=== PATIENT | female | born 1930 | race Caucasian/White ===

== ENCOUNTER 2017-02-06 15:37 | Inpatient (IN) ==
[2017-02-06 16:43] LABS: Basophils % 0.3 %; Eosinophils # 0.1 K/mcL (0.0-0.6); Eosinophils % 1.4 %; Hematocrit 38.1 % (35.3-44.9); Hemoglobin 12.6 g/dL (11.5-15.4); Immature Granulocytes % 2.7 % (0-4); Lymphocytes # 0.6 K/mcL (0.6-4.6); Lymphocytes % 7.5 %; Mean Corpuscular HGB Conc 33.1 g/dL (31.6-35.5); Mean Corpuscular Hemoglobin 31.8 pg (28.0-33.3); Mean Corpuscular Volume 96.2 fL (83.0-100.0); Mean Platelet Volume 10.5 fL (9.4-12.4); Monocytes # 0.3 K/mcL (0.0-1.3); Monocytes % 4.2 %; Neutrophils # 6.5 K/mcL (1.6-8.9); Platelet Count 202 K/mcL (140-400); Red Blood Count 3.96 M/mcL (3.82-4.97); Red Cell Distribution Width 14.2 % (11.5-14.5); Segmented Neutrophils % 83.9 %
--- NOTE | 2017-02-06 16:44 | Emergency Department Note ---
Disposition Clinical Impression: Elevated troponin I level, JU (acute kidney injury), Epigastric abdominal pain Chest pain Qualifiers: Chest pain type: unspecified Qualified Code(s): R07.9 - Chest pain, unspecified CAD (coronary artery disease) Qualifiers: Coronary Disease-Associated Artery/Lesion type: [place] artery [place] vs. transplanted heart: [place] heart Associated angina: angina presence unspecified Qualified Code(s): I25.10 - Atherosclerotic heart disease of [place] coronary artery without angina pectoris Disposition: Admitted As Inpatient Condition: Fair Time of Disposition: 19:21 Chest Pain HPI - General Chief Complaint: ED Chest Pain Stated Complaint: Chest Pain Time Seen by Provider: 02/06/17 15:49 Source: patient Limitations: no limitations Vital Signs Reviewed: Yes Nursing Notes Reviewed: Yes - History of Present Illness HPI Narrative: Patient is an 86-year-old female presents to [facility] ED with a chief complaint of epigastric abdominal pain. States her symptoms started prior to arrival when she was at her primary care physician's office. States she was not doing anything particular at the time when the pain started. Denies any nausea, vomiting, fever or chills. States she has had several episodes similar to this over the last week and they always go away on their own. Denies any shortness of breath. Past medical history significant for MT with history of stenting, Pt complaint: chest pain Onset (ago): Just [place] Duration: now resolved Onset: during rest Severity: severe Severity scale (1-10): 10 Quality: aching Pain Radiation: none Improves with: nothing Worsens with: nothing Associated symptoms: Reports: nausea. Denies: vomiting, dyspnea, fever, cough Treatments prior to arrival chest pain: none - Related Data Home Medications Medication Instructions Recorded Confirmed Allopurinol [Zyloprim 100 MG] 100 mg PO DAILY 12/26/16 02/06/17 Carvedilol [Coreg] 6.25 mg PO BIDWM 12/26/16 02/06/17 Cholecalciferol (Vitamin D3) 2,000 unit PO DAILY 12/26/16 02/06/17 [Vitamin D] CloNIDine Patch [Catapres-TTS] 0.1 mg TD QWEEK 12/26/16 02/06/17 Cyanocobalamin (Vitamin B-12) 1,000 mcg PO DAILY 12/26/16 02/06/17 [Vitamin B12] Docusate Sodium [Stool Softener] 250 mg PO DAILY 12/26/16 02/06/17 Ferrous Sulfate [Iron] 325 mg PO BID 12/26/16 02/06/17 Furosemide [Lasix] 20 mg PO DAILY 12/26/16 02/06/17 Gabapentin [Neurontin] 100 mg PO TID 12/26/16 02/06/17 Nitroglycerin [Nitrostat] 0.4 mg SL Q5M PRN 12/26/16 02/06/17 Omeprazole [PriLOSEC] 20 mg PO BID 12/26/16 02/06/17 Polyethylene Glycol 3350 [MiraLAX 17 gm PO DAILY 12/26/16 02/06/17 Powder Bulk 17.9 Oz] Potassium Chloride [Klor-Con 10] 10 meq PO DAILY 12/26/16 02/06/17 Ropinirole HCl [Requip] 0.5 mg PO TID 12/26/16 02/07/17 Valsartan [Diovan] 160 mg PO BID 12/26/16 02/06/17 amLODIPine [Norvasc] 5 mg PO BID 12/26/16 02/06/17 Clopidogrel [Plavix] 75 mg PO DAILY 02/06/17 02/06/17 Fluticasone Propionate Nasal 100 mcg NS DAILY PRN 02/06/17 02/06/17 [Flonase] HYDROcodone/Acet 10/325 mg [[place] 1 tab PO Q6HR PRN 02/06/17 02/06/17 10-325 mg] Ropinirole HCl [Requip] 4 mg PO HS 02/06/17 02/06/17 Allergies Allergy/AdvReac Type Severity Reaction Status Date / Time Sulfa (Sulfonamide Allergy See Verified 12/26/16 10:46 Antibiotics) Comments All systems ED: reviewed and negative except as stated. Chest Pain PMH - Past Medical History Medical history: Reports: arthritis, CHF, GERD, hyperlipidemia, hypertension, myocardial infarction, renal disease Psychiatric history: Reports: no psych history HAND II CUTTER history: Reports: no HAND II CUTTER history - Social History Smoking Status: Never smoker Alcohol use: Reports: none Drug use: Reports: none Physical Exam - General Limitations: no limitations General appearance: alert - Head Head exam: atraumatic, normocephalic, normal inspection - Eye Eye exam: Present: normal appearance, PERRL, EOMI - ENT ENT exam: normal exam, normal oropharynx, mucous membranes moist - Neck Neck exam: Present: normal inspection, full ROM, trachea midline - Chest Chest inspection: Present: normal inspection, symmetric chest wall rise - Respiratory Respiratory exam: Present: normal lung sounds bilaterally - Cardiovascular Cardiovascular exam: Present: regular rate, normal rhythm, normal heart sounds - Abdominal Exam Abdominal exam: Present: soft, Non-Tender. Absent: tenderness, distention, guarding, rebound, rigidity - Extremities Exam Extremities exam: Present: normal inspection, full ROM. Absent: tenderness, pedal edema - Back Exam Back exam: Present: normal inspection, full ROM. Absent: tenderness - Neurological Exam Neurological exam: Present: alert - Psychiatric Psychiatric exam: Present: normal affect, normal mood - Skin Skin exam: Present: warm, dry, intact, normal color Course Course Narrative: Patient seen and examined. Epigastric abdominal pain. History of recent heart catheterization with one stent placed. Patient is currently not having any pain. We will go ahead and do a cardiopulmonary workup. - Reevaluation(s) Reevaluation #1: Lab work shows troponin 0.05. Also has mild JU with an elevated creatinine 1.57 (0.89 previously). Small fluid bolus was ordered. 325 mg aspirin also ordered. I spoke with hospitalist Ruby Hidalgo who has accepted patient for admission. Time: 19:17 Vital Signs Temperature 97.8 F 02/06/17 15:43 Pulse Rate 63 02/06/17 15:43 Respiratory Rate 16 02/06/17 15:43 Blood Pressure 126/55 02/06/17 15:43 O2 Sat by Pulse Oximetry 97 02/06/17 15:43 Temperature 98.0 F 02/07/17 11:32 Pulse Rate 60 02/07/17 11:32 Respiratory Rate 16 02/07/17 11:32 Blood Pressure 96/61 02/07/17 11:32 O2 Sat by Pulse Oximetry 95 02/07/17 11:32 Oxygen Delivery Oxygen Delivery Room Air Chest Pain - Medical Records Medical records reviewed: Yes I reviewed the patient's medical records. - Lab Data Lab results reviewed: Yes I reviewed the patient's lab results. Result diagrams: 02/07/17 05:11 02/07/17 05:11 Lab Results 02/06/17 02/06/17 02/06/17 Range/Units 16:00 16:00 16:00 WBC 7.8 (4.3-11.1) K/mcL RBC 3.96 (3.82-4.97) M/mcL Hgb 12.6 (11.5-15.4) g/dL Hct 38.1 (35.3-44.9) % MCV 96.2 (83.0-100.0) fL MCH 31.8 (28.0-33.3) pg MCHC 33.1 (31.6-35.5) g/dL RDW 14.2 (11.5-14.5) % Plt Count 202 (140-400) K/mcL MPV 10.5 (9.4-12.4) fL Immature Gran % 2.7 (0-4) % Seg Neutrophils % 83.9 % Lymphocytes % 7.5 % Monocytes % 4.2 % Eosinophils % 1.4 % Basophils % 0.3 % Neutrophils # 6.5 (1.6-8.9) K/mcL Lymphocytes # 0.6 (0.6-4.6) K/mcL Monocytes # 0.3 (0.0-1.3) K/mcL Eosinophils # 0.1 (0.0-0.6) K/mcL Basophils # 0.0 (0.0-0.2) K/mcL PT 15.2 H (9.4-12.1) Seconds INR 1.4 APTT 26.5 (26.0-36.0) Seconds Sodium (136-145) mEq/L Potassium (3.5-4.5) mEq/L Chloride (98-109) mEq/L Carbon Dioxide (19-29) mEq/L BUN (7-20) mg/dL Creatinine (0.57-1.11) mg/dL Est GFR ( Amer) (> 60) Est GFR (Non-Af Amer) (> 60) BUN/Creatinine Ratio (6-26) Glucose (70-99) mg/dL Calculated Osmolality (280-300) Calcium (8.6-10.8) mg/dL Total Bilirubin (0.2-1.2) mg/dL Direct Bilirubin (0.0-0.5) mg/dL Indirect Bilirubin (0.0-1.2) mg/dL AST (5-34) Units/L ALT (0-55) Units/L Alkaline Phosphatase (38-126) Units/L Troponin I (0-0.03) ng/mL B-Natriuretic Peptide 120 H (0-100) pg/mL Serum Total Protein (6.0-8.3) g/dL Albumin (3.5-5.0) g/dL Globulin (2.4-3.5) g/dL Albumin/Globulin Ratio (1.1-2.2) Lipase (8-78) Units/L 02/06/17 02/06/17 Range/Units 16:00 16:00 WBC (4.3-11.1) K/mcL RBC (3.82-4.97) M/mcL Hgb (11.5-15.4) g/dL Hct (35.3-44.9) % MCV (83.0-100.0) fL MCH (28.0-33.3) pg MCHC (31.6-35.5) g/dL RDW (11.5-14.5) % Plt Count (140-400) K/mcL MPV (9.4-12.4) fL Immature Gran % (0-4) % Seg Neutrophils % % Lymphocytes % % Monocytes % % Eosinophils % % Basophils % % Neutrophils # (1.6-8.9) K/mcL Lymphocytes # (0.6-4.6) K/mcL Monocytes # (0.0-1.3) K/mcL Eosinophils # (0.0-0.6) K/mcL Basophils # (0.0-0.2) K/mcL PT (9.4-12.1) Seconds INR APTT (26.0-36.0) Seconds Sodium 134 L (136-145) mEq/L Potassium 4.0 (3.5-4.5) mEq/L Chloride 97 L (98-109) mEq/L Carbon Dioxide 28 (19-29) mEq/L BUN 28 H (7-20) mg/dL Creatinine 1.57 H (0.57-1.11) mg/dL Est GFR ( Amer) 38 L (> 60) Est GFR (Non-Af Amer) 31 L (> 60) BUN/Creatinine Ratio 18 (6-26) Glucose 119 H (70-99) mg/dL Calculated Osmolality 285 (280-300) Calcium 9.1 (8.6-10.8) mg/dL Total Bilirubin 1.6 H (0.2-1.2) mg/dL Direct Bilirubin 0.5 (0.0-0.5) mg/dL Indirect Bilirubin 1.1 (0.0-1.2) mg/dL AST 17 (5-34) Units/L ALT 14 (0-55) Units/L Alkaline Phosphatase 84 (38-126) Units/L Troponin I 0.05 H* (0-0.03) ng/mL B-Natriuretic Peptide (0-100) pg/mL Serum Total Protein 6.1 (6.0-8.3) g/dL Albumin 3.2 L (3.5-5.0) g/dL Globulin 2.9 (2.4-3.5) g/dL Albumin/Globulin Ratio 1.1 (1.1-2.2) Lipase 78 (8-78) Units/L - Radiology Data Radiology results reviewed: Yes I reviewed the patient's radiology results. Chest X-Ray 02/06/17 16:29 IMPRESSION: Stable chest x-ray. No acute disease. D/ / Roel Lema MD / Roel Lema MD Interpreting Provider: Roel Lema MD - EKG Data EKG attestation: Yes I reviewed and interpreted this EKG. EKG results narrative: EKG done at 1543 shows electronic ventricular paced rhythm with a beat of 64 bpm. Patient does have some inverted T waves in lead V4 through V6 that appears new from EKG done 12/26/2016. Heart Score - Score History: Moderately Suspicious EKG: Non Specific repolarisation Disturbance Age: Greater than 65 Risk Factors: Equal/Greater than 3 risk factor or history of atherosclerotic disease Troponin: 1-3x normal limit HEART Score Total: 7 Attestation Statement - Attestation Attestation: I personally interviewed and examined this patient and my medical decision- making was reviewed with the Resident Physician, Dr. Brooks. I agree with the documented findings, disposition and treatment plan as described except to the extent set forth below. Pt is an 86 yo wf, hx CAD with prior stent placement who presents to the ER with c/o CP/epigastric abd pain. Pt c/o "just not feeling well". Pt had been at her doctors office and began to c/o of above issues, they sent her to the ER for evaluation. Pt's daughter at bedside, and reports that she feels she isn't receiving good care at the [facility], and hasn't been "eating or drinking much for days". I agree with pt's PE as documented. Pt with paced rhythm on EKG. Pt received ASA. Pt with acute on chronic RI, and elev trop. Pt currently c/o only mild epigastric pain. CXR clear. Administered IVF, and will admit for elev trop with CP. Pt currently CP free at this time. VSS.
[2017-02-06 16:54] LABS: Albumin 3.2 g/dL (3.5-5.0); Albumin/Globulin Ratio 1.1 (1.1-2.2); Bilirubin,Direct 0.5 mg/dL (0.0-0.5); Bilirubin,Indirect 1.1 mg/dL (0.0-1.2); Bilirubin,Total 1.6 mg/dL (0.2-1.2); Calcium 9.1 mg/dL (8.6-10.8); Globulin 2.9 g/dL (2.4-3.5); Total Protein 6.1 g/dL (6.0-8.3)
[2017-02-06] MEDS ORDERED: Aspirin Enteric Coated 325 MG Tablet PO SCH (17:00)
[2017-02-06] MEDS ORDERED: 0.9 % Sodium Chloride 500 ML IVC ONE (17:17)
[2017-02-06] MEDS ORDERED: Aspirin 81 MG TAB.CHEW PO ONE (17:21)
[2017-02-06 17:49] LABS: INR 1.4; Prothrombin Time 15.2 Seconds (9.4-12.1)
[2017-02-06 17:51] LABS: Activated Partial Thrombo Time 26.5 Seconds (26.0-36.0)
[2017-02-06] MEDS ORDERED: Ondansetron 4 MG/2 ML VIAL IVP PRN (20:05)
[2017-02-06] MEDS ORDERED: Acetaminophen 325 MG TABLET PO PRN (20:05)
[2017-02-06] MEDS ORDERED: *HR* Morphine 2 MG/ML SYRINGE IVP PRN (20:05)
[2017-02-06] MEDS ORDERED: Naloxone 0.4 MG/ML INJ IVP PRN (20:05)
[2017-02-06] MEDS ORDERED: Nitroglycerin 0.4 MG TAB.SUBL SL PRN (20:25)
[2017-02-06] MEDS ORDERED: 0.9 % Sodium Chloride 1,000 ML IVC SCH ×2 (20:30→21:48)
--- NOTE | 2017-02-06 20:33 | Internal Med History&Physical ---
<Anthony Zamora - Last Filed: 02/06/17 20:59> Date of Encounter: 02/06/17 Time of Encounter: 19:30 Assessment and Plan (1) JU (acute kidney injury) Current visit: Yes Status: Acute - SCr 1.57, which is elevated compared to 0.92 on 12/26/16. - Likely secondary to dehydration. - Will hold home dose Lasix and Losartan at this time. - Given patient's CHF history, will rehydrate with IV NS at slower rate. - Continue to monitor renal function and electrolytes. (2) GERD (gastroesophageal reflux disease) Current visit: Yes Status: Acute - Burning epigastric abdominal pain. - Feel more likely secondary to GERD and less likely ACS. - Increase omeprazole to 40 mg PO BID. - Continue to monitor. Qualifiers: Esophagitis presence: esophagitis presence not specified Qualified Code(s) : K21.9 - Gastro-esophageal reflux disease without esophagitis (3) Elevated troponin I level Current visit: Yes Status: Acute - Mildly elevated troponin at 0.05 in ED. - Feel more likely secondary to JU rather than cardiac cause given EKG showed no significant ischemic change compared to prior EKG in December 2016. - Continue telemetry monitoring. - Recheck troponin in AM. (4) CAD (coronary artery disease) Current visit: Yes Status: Chronic - Known CAD s/p recent heart cath and stent placement at [facility]. - Will obtain medical record from [facility] to what kind of stent was placed and what other cardiac work-up had been done. - Continue aspirin, Plavix, beta-mary jo. Qualifiers: Coronary Disease-Associated Artery/Lesion type: [place] artery [place] vs. transplanted heart: [place] heart Associated angina: angina presence unspecified Qualified Code(s): I25.10 - Atherosclerotic heart disease of [place] coronary artery without angina pectoris (5) DVT prophylaxis Current visit: Yes Status: Acute - SQ heparin. Internal Medicine - H&P: HPI Chief complaint: Epigastric pain Admitted From: Emergency Dept Plans for Post Hospital Care: Home History of present illness: Ms. Russell is a 86 year old female with PMH of HTN, CHF, history of TIA x3, CAD s /p recent heart cath and stent placement at [facility] in [place]. Patient presented with complaint of intermittent epigastric abdominal pain for one week. Patient describes it as burning pain without radiation. No aggravating or alleviating factors noted. No change with exertion or eating. Patient also reports having dizziness for 3-4 days. Patient denies chest pain, shortness of breath, diaphoresis, lower extremity edema, fever, chills, nausea, vomiting, diarrhea, hematochezia, melena, vision change, hearing change. Patient is a alf resident and reports not getting much oral fluid intake recently. Patient is full code. Past Med Surg Social Fam HX - Past Medical History Medical history: arthritis, CHF, GERD, hyperlipidemia, hypertension, myocardial infarction, renal disease Psychiatric history: no psych history - Social History Smoking Status: Never smoker Smokeless Tobacco Status: No Alcohol use: none Drug use: none - Family History Mother Living Status: Age at : 81 Hx Family Cardiac Disorders: Yes (CHF) Father Living Status: Age at : 70 Hx Family Cardiac Disorders: Yes (heart problem) Internal Medicine - H&P: Meds Allopurinol [Zyloprim 100 MG] 100 mg PO DAILY 12/26/16 [History] Carvedilol [Coreg] 6.25 mg PO BIDWM 12/26/16 [History] Cholecalciferol (Vitamin D3) [Vitamin D] 2,000 unit PO DAILY 12/26/16 [History] CloNIDine Patch [Catapres-TTS] 0.1 mg TD QWEEK 12/26/16 [History] Cyanocobalamin (Vitamin B-12) [Vitamin B12] 1,000 mcg PO DAILY 12/26/16 [History ] Docusate Sodium [Stool Softener] 250 mg PO DAILY 12/26/16 [History] Ferrous Sulfate [Iron] 325 mg PO BID 12/26/16 [History] Furosemide [Lasix] 20 mg PO DAILY 12/26/16 [History] Gabapentin [Neurontin] 100 mg PO TID 12/26/16 [History] Nitroglycerin [Nitrostat] 0.4 mg SL Q5M PRN 12/26/16 [History] Omeprazole [PriLOSEC] 20 mg PO BID 12/26/16 [History] Polyethylene Glycol 3350 [MiraLAX Powder Bulk 17.9 Oz] 17 gm PO DAILY 12/26/16 [ History] Potassium Chloride [Klor-Con 10] 10 meq PO DAILY 12/26/16 [History] Ropinirole HCl [Requip] 5 mg PO TID 12/26/16 [History] Valsartan [Diovan] 160 mg PO BID 12/26/16 [History] amLODIPine [Norvasc] 5 mg PO BID 12/26/16 [History] Clopidogrel [Plavix] 75 mg PO DAILY 02/06/17 [History] Fluticasone Propionate Nasal [Flonase] 100 mcg NS DAILY PRN 02/06/17 [History] HYDROcodone/Acet 10/325 mg [[place] 10-325 mg] 1 tab PO Q6HR PRN 02/06/17 [History ] Ropinirole HCl [Requip] 4 mg PO HS 02/06/17 [History] Allergies Sulfa (Sulfonamide Antibiotics) Allergy (Verified 12/26/16 10:46) See Comments All Systems PM: A 10-system review of systems was performed and is negative for pertinent findings except as documented above in the HPI. - Constitutional Constitutional: fatigue, no chills, no fever(s) - EENT Eyes: no change in vision Ears: no decreased hearing Nose, mouth and throat: no dysphagia, no odynophagia - Cardiovascular Cardiovascular ROS IM: no chest pain, no diaphoresis, no edema, no syncope - Respiratory Respiratory: no cough, no dyspnea, no hemoptysis - Gastrointestinal Gastrointestinal: as per HPI, abdominal pain (Epigastric pain), no hematochezia , no melena, no nausea, no vomiting - Genitourinary Genitourinary: dysuria - Musculoskeletal Musculoskeletal ROS IM: back pain - Integumentary Integumentary IM: no pruritus, no rash - Neurological Neurological ROS: no focal weakness - Hematologic/Lymphatic Hematologic/Lymphatic: no easy bleeding, no easy bruising - Constitutional Vitals: Temp Pulse Resp BP Pulse Ox 97.8 F 59 18 121/69 97 02/06/17 15:43 02/06/17 20:02 02/06/17 20:02 02/06/17 20:02 02/06/17 19:00 General appearance: Present: cooperative, A&O X 3, no acute distress, answers questions appropriately - Head Head exam: Present: atraumatic, normocephalic - Eye Eye exam: Present: EOMI, PERRL, conjuntiva pink, sclera anicteric - Neck Neck exam general surgery: Present: supple, trachea midline. Absent: lymphadenopathy - Respiratory Respiratory exam: Present: CTAB. Absent: accessory muscle use, rales, rhonchi, wheezes - Cardiovascular Cardiovascular exam: Present: RRR, +S1, +S2. Absent: diastolic murmur, gallop, rubs, systolic murmur - GI/Abdominal GI/Abdominal exam: Present: normal bowel sounds, soft, tenderness (Epigastric area), no peritoneal signs. Absent: distended - Extremities Exam Extremities exam: Present: warm, radial pulses palpable and symetrical. Absent : calf tenderness, cyanotic, pedal edema - Neurological Exam Neurological exam: Present: CN II-XII intact, oriented X3, no focal deficits. Absent: pronater drift, facial droop, speech deficit - Skin Skin exam: Present: dry, intact, warm Internal Med - H&P Results - Labs CBC & Chem 7: 02/06/17 16:00 02/06/17 16:00 <Carlos Mcdonald - Last Filed: 02/07/17 03:53> Date of Encounter: 02/06/17 Internal Medicine - H&P: HPI History of present illness: Ms. Russell is a 86 year old female Past Med Surg Social Fam HX - Past Surgical History Surgical History: angioplasty/stent, cholecystectomy, pacemaker/AICD All Systems PM: A 10-system review of systems was performed and is negative for pertinent findings except as documented above in the HPI. - Constitutional Vitals: Temp Pulse Resp BP Pulse Ox 97.5 F L 60 15 91/57 95 02/06/17 23:20 02/06/17 23:20 02/06/17 23:20 02/06/17 23:20 02/06/17 23:20 Internal Med - H&P Results - Labs CBC & Chem 7: 02/06/17 16:00 02/06/17 16:00 Labs: Urine 02/07/17 Range/Units 03:07 Urine Color Yellow (Yellow) Urine Clarity Clear (Clear) Urine pH 6.0 (5.0-8.0) pH Units Ur Specific [place] 1.010 (1.010-1.025) Urine Protein Negative (Neg-Trace) mg/dL Urine Glucose (UA) Normal (Normal) mg/dL - Attending Attestation I personally interviewed and examined this patient and my medical decision- making was reviewed with the Resident Physician. I agree with the documented findings, disposition and treatment plan as described. Carlos Mcdonald MD, MPH Hospitalist
[2017-02-06] MEDS ORDERED: NON-FORMULARY MEDICATION 1 EACH EACH (Ropinirole Hcl [Requip] 0.5 MG) PO SCH (21:00)
[2017-02-06] MEDS: Gabapentin 100 MG CAPSULE PO SCH (22:10)
[2017-02-06] MEDS: amLODIPine 5 MG TABLET PO SCH (22:11)
[2017-02-06] MEDS ORDERED: rOPINIRole 1 MG TABLET PO SCH (23:47)
[2017-02-07] MEDS: rOPINIRole 1 MG TABLET PO SCH ×2 (00:21→20:52)
[2017-02-07] MEDS: *HR* HYDROcodone/Acet 5/325 mg TABLET PO PRN ×5 (00:21→19:46)
[2017-02-07 03:29] LABS: Bilirubin,Urine Negative (Negative); Blood,Urine Negative (Negative); Clarity,Urine Clear (Clear); Color,Urine Yellow (Yellow); Glucose,Urine (UA) Normal (Normal); Ketones,Urine Negative (Negative); Leukocyte Esterase,Urine Negative (Negative); Nitrite,Urine Negative (Negative); Protein,Urine Negative (Neg-Trace); Urobilinogen,Urine Normal (Normal)
[2017-02-07 05:39] LABS: Basophils % 0.4 %; Eosinophils # 0.2 K/mcL (0.0-0.6); Eosinophils % 2.7 %; Hematocrit 31.9 % (35.3-44.9); Immature Granulocytes % 4.1 % (0-4); Lymphocytes # 0.5 K/mcL (0.6-4.6); Lymphocytes % 8.6 %; Mean Corpuscular HGB Conc 33.2 g/dL (31.6-35.5); Mean Corpuscular Volume 96.4 fL (83.0-100.0); Mean Platelet Volume 10.4 fL (9.4-12.4); Monocytes # 0.3 K/mcL (0.0-1.3); Monocytes % 4.5 %; Neutrophils # 4.5 K/mcL (1.6-8.9); Platelet Count 163 K/mcL (140-400); Red Blood Count 3.31 M/mcL (3.82-4.97); Red Cell Distribution Width 14.4 % (11.5-14.5); Segmented Neutrophils % 79.7 %
[2017-02-07 05:58] LABS: Calcium 8.4 mg/dL (8.6-10.8); Hemoglobin 10.6 g/dL (11.5-15.4)
[2017-02-07 06:06] LABS: Thyroid Stimulating Hormone 1.708 mcIU/mL (0.350-4.840)
[2017-02-07] MEDS: *HR* Heparin 5,000 UNIT/ML VIAL SQ SCH ×2 (06:19→18:48)
[2017-02-07] MEDS ORDERED: 0.9 % Sodium Chloride 1,000 ML IVC SCH (07:26)
--- NOTE | 2017-02-07 07:40 | Internal Med Progress Note ---
Date of Encounter: 02/07/17 Time of Encounter: 07:38 - Assessment and plan (1) Elevated troponin I level Current Visit: Yes Status: Acute Assessment and plan: Mostly demand ischemia plus due to JU too Reviewed EKG from y/d - No acute EKG changes noticed. No ST. T changes Troponin started trending down Cont ASA, Plavix, and coreg Held ARB due to JU (2) Acute low back pain Current Visit: Yes Status: Acute Assessment and plan: Severe low back pain will obtain Thoracic and Lumbar spine X rays also consult pain management cont PT / OT cont narcotics PRN for pain Qualifiers: Qualified Code(s): M54.5 - Low back pain (3) JU (acute kidney injury) Current Visit: Yes Status: Acute Assessment and plan: Improving held Lasix for now gentle hydration only (4) CAD (coronary artery disease) Current Visit: Yes Status: Chronic Assessment and plan: Cont ASA, Plavix, and coreg Held ARB due to JU Qualifiers: Coronary Disease-Associated Artery/Lesion type: [place] artery [place] vs. transplanted heart: [place] heart Associated angina: angina presence unspecified Qualified Code(s): I25.10 - Atherosclerotic heart disease of [place] coronary artery without angina pectoris (5) Epigastric abdominal pain Current Visit: Yes Status: Acute Assessment and plan: Improved cont PPI (6) GERD (gastroesophageal reflux disease) Current Visit: Yes Status: Acute Assessment and plan: on PPI Qualifiers: Esophagitis presence: esophagitis presence not specified Qualified Code(s) : K21.9 - Gastro-esophageal reflux disease without esophagitis (7) DVT prophylaxis Current Visit: Yes Status: Acute Assessment and plan: on SQ Heparin - Subjective Interval history: Ms. Russell is a 86 year old female with PMH of HTN, CHF, history of TIA x3, CAD s /p heart cath and stent placement on 01/04/17 at [facility] in [place]. Patient presented with complaint of intermittent epigastric abdominal pain for one week and severe intractable low back pain. Patient describes it as burning pain without radiation. No aggravating or alleviating factors noted. No change with exertion or eating. Patient also reports having dizziness for 3-4 days. Patient denies chest pain, shortness of breath, diaphoresis, lower extremity edema, fever, chills, nausea, vomiting, diarrhea, hematochezia, melena, vision change, hearing change. Patient is a jail resident and reports not getting much oral fluid intake recently. Pt did mention that she went to Pain management clinic y/d for her intractable back pain before she was sent over here from the clinic. - Constitutional Vitals: Temp Pulse Resp BP Pulse Ox 97.8 F 60 15 116/73 97 02/07/17 07:30 02/07/17 07:30 02/07/17 07:30 02/07/17 07:30 02/07/17 07:30 General appearance: Present: cooperative, A&O X 3, no acute distress, answers questions appropriately - Head Head exam: Present: atraumatic, normal inspection - Neck Neck exam general surgery: Present: supple. Absent: lymphadenopathy, thyromegaly - Respiratory Respiratory exam: Present: decreased breath sounds. Absent: respiratory distress, rhonchi, wheezes - Cardiovascular Cardiovascular exam: Present: RRR, +S1, +S2. Absent: systolic murmur - GI/Abdominal GI/Abdominal exam: Present: normal bowel sounds, soft. Absent: rebound, rigid, tenderness - Extremities Exam Extremities exam: Absent: calf tenderness, pedal edema, tenderness - Back Exam Back exam: Present: muscle spasm, paraspinal tenderness. Absent: full ROM - Psychiatric Psychiatric exam: Present: normal affect, normal mood Internal Medicine: Result - Labs CBC & Chem 7: 02/07/17 05:11 02/07/17 05:11 Labs: Short CBC 02/07/17 Range/Units 05:11 WBC 5.6 (4.3-11.1) K/mcL Hgb 10.6 L D (11.5-15.4) g/dL Hct 31.9 L (35.3-44.9) % Plt Count 163 (140-400) K/mcL Neutrophils # 4.5 (1.6-8.9) K/mcL BMP 02/07/17 05:11 Sodium 137 Potassium 4.0 Chloride 103 Carbon Dioxide 29 BUN 25 H Creatinine 1.32 H Glucose 110 H Calcium 8.4 L Cardiac Enzymes 02/07/17 Range/Units 05:11 Troponin I 0.04 H* (0-0.03) ng/mL Urine 02/07/17 Range/Units 03:07 Urine Color Yellow (Yellow) Urine Clarity Clear (Clear) Urine pH 6.0 (5.0-8.0) pH Units Ur Specific [place] 1.010 (1.010-1.025) Urine Protein Negative (Neg-Trace) mg/dL Urine Glucose (UA) Normal (Normal) mg/dL - ABG Interpretation ABG results: PT/INR, D-dimer PT 15.2 Seconds (9.4-12.1) H 02/06/17 16:00 Consult Discharge Plan - Plan Referrals: Courtney Perrin, RESIDENTIAL ELECTRICIAN [Primary Care Provider] -
[2017-02-07] MEDS ORDERED: DOCUSATE SODIUM 250 MG PO SCH (09:00)
[2017-02-07] MEDS: Aspirin 81 MG TAB.CHEW PO SCH (09:22)
[2017-02-07] MEDS: Gabapentin 100 MG CAPSULE PO SCH ×3 (09:22→20:52)
[2017-02-07] MEDS: amLODIPine 5 MG TABLET PO SCH ×2 (09:22→20:52)
[2017-02-07] MEDS: Desitin (Zinc Oxide) 56 GM TUBE TP SCH ×3 (09:25→20:58)
[2017-02-07] MEDS: rOPINIRole 0.25 MG TABLET PO SCH ×3 (10:24→17:11)
[2017-02-08 04:18] LABS: BUN/Creatinine Ratio 12 (6-26); Calcium 8.2 mg/dL (8.6-10.8); Carbon Dioxide 25 mEq/L (19-29); Chloride 104 mEq/L (98-109); Glucose 138 mg/dL (70-99); Magnesium 1.7 mg/dL (1.6-2.6); Osmolality,Calculated 284 (280-300); Sodium 136 mEq/L (136-145); eGFR For African Americans > 60 (> 60); eGFR For Non-African Americans 50 (> 60)
[2017-02-08 04:19] LABS: Blood Urea Nitrogen 12 mg/dL (7-20)
[2017-02-08] MEDS: *HR* Heparin 5,000 UNIT/ML VIAL SQ SCH (06:29)
--- NOTE | 2017-02-08 07:45 | Electrocardiograph Report ---
[address] [place], [place] [address] Test Date: 2017-02-06 Pat Name: Gail Russell Department: 104 Room: 3B13 Gender: F Teaching Assistant: AM : 1930 Requested By: Homa Brooks Order Number: [id number] Reading MD: Deon Morrissey MD Measurements Intervals [place] Rate: 64 P: [place]: 0 QRS: 241 QRSD: 146 T: 189 QT: 445 QTc: 454 Interpretive Statements ELECTRONIC VENTRICULAR PACEMAKER PROBABLE UNDERLYING ATRIAL FLUTTER Electronically Signed On 02-07-2017 17:42:31 EDT by Deon Morrissey MD
[2017-02-08] MEDS: Desitin (Zinc Oxide) 56 GM TUBE TP SCH ×2 (08:26→14:02)
[2017-02-08] MEDS: amLODIPine 5 MG TABLET PO SCH (08:26)
[2017-02-08] MEDS: Aspirin 81 MG TAB.CHEW PO SCH (08:26)
[2017-02-08] MEDS: Gabapentin 100 MG CAPSULE PO SCH ×2 (08:26→14:02)
[2017-02-08] MEDS: rOPINIRole 0.25 MG TABLET PO SCH ×2 (08:26→14:02)
[2017-02-08 11:17] VITALS: BP 97/48
--- NOTE | 2017-02-08 12:49 | Discharge Summary ---
Date of Encounter: 02/08/17 Time of Encounter: 09:00 - Discharge Diagnosis (1) Elevated troponin I level Priority: Primary Status: Resolved (2) Acute low back pain Priority: Primary Status: Acute Qualifiers: Qualified Code(s): M54.5 - Low back pain (3) JU (acute kidney injury) Priority: Secondary Status: Acute (4) CAD (coronary artery disease) Priority: Secondary Status: Chronic Qualifiers: Coronary Disease-Associated Artery/Lesion type: [place] artery [place] vs. transplanted heart: [place] heart Associated angina: angina presence unspecified Qualified Code(s): I25.10 - Atherosclerotic heart disease of [place] coronary artery without angina pectoris (5) Epigastric abdominal pain Priority: Secondary Status: Acute (6) GERD (gastroesophageal reflux disease) Priority: Secondary Status: Acute Qualifiers: Esophagitis presence: esophagitis presence not specified Qualified Code(s) : K21.9 - Gastro-esophageal reflux disease without esophagitis (7) Chronic indwelling [place] catheter Priority: Secondary Status: Acute - Discharge Medications Prescriptions: HYDROcodone/Acet 10/325 mg [[place] 10-325 mg] 1 tab PO Q6HR PRN #20 PRN Reason: Pain Home Medications: Allopurinol [Zyloprim 100 MG] 100 mg PO DAILY 12/26/16 [History] Carvedilol [Coreg] 6.25 mg PO BIDWM 12/26/16 [History] Cholecalciferol (Vitamin D3) [Vitamin D] 2,000 unit PO DAILY 12/26/16 [History] CloNIDine Patch [Catapres-TTS] 0.1 mg TD QWEEK 12/26/16 [History] Cyanocobalamin (Vitamin B-12) [Vitamin B12] 1,000 mcg PO DAILY 12/26/16 [History ] Docusate Sodium [Stool Softener] 250 mg PO DAILY 12/26/16 [History] Ferrous Sulfate [Iron] 325 mg PO BID 12/26/16 [History] Furosemide [Lasix] 20 mg PO DAILY 12/26/16 [History] Gabapentin [Neurontin] 100 mg PO TID 12/26/16 [History] Nitroglycerin [Nitrostat] 0.4 mg SL Q5M PRN 12/26/16 [History] Omeprazole [PriLOSEC] 20 mg PO BID 12/26/16 [History] Polyethylene Glycol 3350 [MiraLAX Powder Bulk 17.9 Oz] 17 gm PO DAILY 12/26/16 [ History] Potassium Chloride [Klor-Con 10] 10 meq PO DAILY 12/26/16 [History] Ropinirole HCl [Requip] 0.5 mg PO TID 12/26/16 [History] amLODIPine [Norvasc] 5 mg PO BID 12/26/16 [History] Clopidogrel [Plavix] 75 mg PO DAILY 02/06/17 [History] Fluticasone Propionate Nasal [Flonase] 100 mcg NS DAILY PRN 02/06/17 [History] Ropinirole HCl [Requip] 4 mg PO HS 02/06/17 [History] HYDROcodone/Acet 10/325 mg [[place] 10-325 mg] 1 tab PO Q6HR PRN #20 02/08/17 [Rx ] Valsartan [Diovan] 80 mg PO DAILY #0 02/08/17 [Rx] Allergies/Adverse Reactions: Allergies Sulfa (Sulfonamide Antibiotics) Allergy (Verified 12/26/16 10:46) See Comments Date of admission: 02/06/17 19:39 Primary care physician: Courtney Perrin Consults: 02/06/17 22:31 Consult to Dye Jig Operator [CONS] Routine Reason for SW Consult: from [facility] in [place], does not want to return 02/07/17 12:45 Consult to Occupational Therapy [CONS] Routine Comment: Evaluate, develop and implement POC Reason for Consult: Weakness Consult to Physical Therapy [CONS] Routine Comment: Evaluate, develop and implement POC Reason for Consult: Weakness - Patient Status Disposition: Transfer SNF Condition: Good Overall status at discharge: patient is back to baseline - Discharge Instructions Follow Up With: Courtney Perrin, MAKE UP OPERATOR [Primary Care Provider] - Additional Instructions: continue [place] catheter f/u with PCP in one week f/u with Pain management Dr. Overton in 1- 2weeks - Diet and Activity Activity: as per physical therapy Diet: low salt diet Hospital course: Ms. Russell is a 86 year old female with PMH of HTN, CHF, history of TIA x3, CAD s /p heart cath and stent placement on 01/04/17 at [facility] in [place]. Patient presented with complaint of intermittent epigastric abdominal pain for one week and severe intractable low back pain. Patient describes it as burning pain without radiation. No aggravating or alleviating factors noted. No change with exertion or eating. Patient also reports having dizziness for 3-4 days. Patient denies chest pain, shortness of breath, diaphoresis, lower extremity edema, fever, chills, nausea, vomiting, diarrhea, hematochezia and melena. Patient is a [facility] and reports not getting much oral fluid intake recently. She went to Pain management clinic prior to the admission for her intractable back pain. Pt admitted here for atypical chest pain, placed her on monitoring coordinator. No acute EKG changes noticed. She had slightly elevated troponin at 0.04 mostly due to demand ischemia and JU. Regarding her intractable back pain initially she was required more frequent pain medications. I did check her Thoracic and Lumbar spine X ray which showed severe multi level DJD. Also spoke to pt's pain management doctor Dr. Kirby, who requested to f/u with them as an out pt. She refused to go back to same ECF she came from, so we are d/c ing her to another ECF [facility] today in saf condition. She does have chronic indwelling [place] catheter due to her chronic urinary retention. - Time Spent with Patient Total time spent providing and/or coordinating discharge services: - Constitutional Vitals: Temp Pulse Resp BP Pulse Ox 98.2 F 59 16 97/48 95 02/08/17 11:17 02/08/17 11:17 02/08/17 11:17 02/08/17 11:17 02/08/17 11:17 General appearance: Present: cooperative, A&O X 3, no acute distress, answers questions appropriately - Head Head exam: Present: atraumatic, normal inspection - Respiratory Respiratory exam: Present: decreased breath sounds. Absent: rales, respiratory distress, rhonchi, wheezes - Cardiovascular Cardiovascular exam: Present: RRR, +S1, +S2. Absent: gallop, rubs - GI/Abdominal GI/Abdominal exam: Present: normal bowel sounds, soft. Absent: rebound, rigid - Extremities Exam Extremities exam: Absent: calf tenderness, pedal edema, tenderness - Back Exam Back exam: Absent: CVA tenderness (L), CVA tenderness (R) Additional comments: mild para vertebral tenderness. No swelling - Psychiatric Psychiatric exam: Present: normal affect, normal mood
--- NOTE | 2017-02-08 13:08 | Physician Discharge Referral ---
ExtendedCare Referral Info Transfer To: ECF Provider in Charge after Transfer: PCP Institutional Level of Care: Skilled - Diagnosis (1) Elevated troponin I level Status: Resolved (2) Acute low back pain Status: Acute (3) JU (acute kidney injury) Status: Acute (4) CAD (coronary artery disease) Status: Chronic (5) Epigastric abdominal pain Status: Acute (6) GERD (gastroesophageal reflux disease) Status: Acute (7) Chronic indwelling [place] catheter Status: Acute - Transfer Medications Prescriptions: HYDROcodone/Acet 10/325 mg [[place] 10-325 mg] 1 tab PO Q6HR PRN #20 PRN Reason: Pain Home Medications: Allopurinol [Zyloprim 100 MG] 100 mg PO DAILY 12/26/16 [History] Carvedilol [Coreg] 6.25 mg PO BIDWM 12/26/16 [History] Cholecalciferol (Vitamin D3) [Vitamin D3] 2,000 unit PO DAILY 12/26/16 [History] CloNIDine Patch [Catapres-Tts] 0.1 mg TD QWEEK 12/26/16 [History] Cyanocobalamin (Vitamin B-12) [Vitamin B12] 1,000 mcg PO DAILY 12/26/16 [History ] Docusate Sodium [Stool Softener] 250 mg PO DAILY 12/26/16 [History] Ferrous Sulfate [Iron] 325 mg PO BID 12/26/16 [History] Furosemide [Lasix] 20 mg PO DAILY 12/26/16 [History] Gabapentin [Neurontin] 100 mg PO TID 12/26/16 [History] Nitroglycerin [Nitrostat] 0.4 mg SL Q5M PRN 12/26/16 [History] Omeprazole [PriLOSEC] 20 mg PO BID 12/26/16 [History] Polyethylene Glycol 3350 [MiraLAX Powder Bulk 17.9 Oz] 17 gm PO DAILY 12/26/16 [ History] Potassium Chloride [Klor-Con 10] 10 meq PO DAILY 12/26/16 [History] Ropinirole HCl [Requip] 0.5 mg PO TID 12/26/16 [History] amLODIPine [Norvasc] 5 mg PO BID 12/26/16 [History] Clopidogrel [Plavix] 75 mg PO DAILY 02/06/17 [History] Fluticasone Propionate Nasal [Flonase] 100 mcg NS DAILY PRN 02/06/17 [History] Ropinirole HCl [Requip] 4 mg PO HS 02/06/17 [History] HYDROcodone/Acet 10/325 mg [[place] 10-325 mg] 1 tab PO Q6HR PRN #20 02/08/17 [Rx ] Valsartan [Diovan] 80 mg PO DAILY #0 02/08/17 [Rx] Allergies/Adverse Reactions: Allergies Sulfa (Sulfonamide Antibiotics) Allergy (Verified 12/26/16 10:46) See Comments - Respiratory Orders Smoking Cessation: Smoking cessation has been advised. For more information, call the [place] Tobacco Quit Line at 2-037-FSOV-NOW. CERTIFICATION: I certify that the transfer of the above named patient to an Extended Care Facility is necessary for the continuing treatment of the diagnosis listed. The above information is true and accurate reflection of patient's current condition. Confidential - Redisclosure prohibited without a patient's written consent.
[2017-02-08] MEDS: *HR* HYDROcodone/Acet 5/325 mg TABLET PO PRN (14:02)
== END 2017-02-08 18:45 | DRG 683 ==
LOC: EMEROO 15:37 → 3BNU 15:37
PROVIDERS: ADMIT Registered Nurse; ATTEND Registered Nurse

== ENCOUNTER 2017-03-10 18:30 | Inpatient (IN) ==
[2017-03-11] MEDS ORDERED: Ondansetron 4 MG/2 ML VIAL IVP PRN (00:44)
[2017-03-11] MEDS ORDERED: Acetaminophen 325 MG TABLET PO PRN (00:44)
[2017-03-11] MEDS ORDERED: Naloxone 0.4 MG/ML INJ IVP PRN (00:44)
[2017-03-11] MEDS ORDERED: Nitroglycerin 0.4 MG TAB.SUBL SL PRN (00:50)
[2017-03-11] MEDS ORDERED: Fluticasone Propionate Nasal 50 MCG/SPRAY BOTTLE NS PRN (00:50)
[2017-03-11] MEDS ORDERED: CloNIDine Patch 0.1 MG PATCH (WEEKLY) TD SCH (01:00)
[2017-03-11] MEDS ORDERED: D5% in Water 1,000 ML IVC SCH (01:45)
[2017-03-11] MEDS: *HR* HYDROcodone/Acet 10/325 mg TABLET PO PRN ×2 (02:42→13:30)
[2017-03-11] MEDS: Furosemide 40 MG/4 ML VIAL IVP SCH ×2 (02:43→08:38)
--- NOTE | 2017-03-11 04:29 | Internal Med History&Physical ---
Date of Encounter: 03/11/17 Time of Encounter: 01:00 Assessment and Plan (1) CHF exacerbation Current visit: Yes Status: Acute Patient has shortness of breath, increased leg swelling, elevated BNP. History of CHF. No echo results are available so far. - Consider CHF exacerbation. Place patient on Lasix 40 mg IV twice a day. - Streaked I/O - Check an echocardiogram. Qualifiers: Congestive heart failure type: unspecified congestive heart failure type Qualified Code(s): I50.9 - Heart failure, unspecified (2) GI bleed Current visit: Yes Status: Acute Patient reports coffee-ground emesis. In [facility], guaiac test was positive. - So far vitals and H and H are stable. - Place the patient on nothing by mouth. IV PPI. - Consult GI in a.m. Qualifiers: GI bleed type/associated pathology: melena Qualified Code(s): K92.1 - Melena (3) CKD (chronic kidney disease) Current visit: Yes Status: Acute Stable Qualifiers: Chronic kidney disease stage: stage 3 (moderate) Qualified Code(s): N18.3 - Chronic kidney disease, stage 3 (moderate) (4) CAD (coronary artery disease) Current visit: No Status: Chronic Patient denies chest pain. Continue home medications after pharmacy verification. Qualifiers: Coronary Disease-Associated Artery/Lesion type: [place] artery [place] vs. transplanted heart: [place] heart Associated angina: angina presence unspecified Qualified Code(s): I25.10 - Atherosclerotic heart disease of [place] coronary artery without angina pectoris Internal Medicine - H&P: HPI Chief complaint: Shortness of breath Admitted From: Home Plans for Post Hospital Care: Home History of present illness: Ms. Russell is a 86 year old female with history of CHF, CTD, S/p PPM, CAD S/P stent transferred from [facility] for shortness of breath for 2 days. Patient said she has noticed increased feet swelling for 2-3 months. With mild nonproductive cough. Patient said she feels shortness of breath since last 2 days, getting worse and worse. She also reported vomiting with coffee-ground emesis. In [facility] emergency room, she was found elevated BNP to 2408. She was also found guaiac test positive. Patient was transferred to our hospital for CHF exacerbation and GI bleed. Past Med Surg Social Fam HX - Past Medical History Medical history: arthritis, CHF, GERD, hyperlipidemia, hypertension, myocardial infarction, renal disease, TIA Psychiatric history: no psych history - Past Surgical History Surgical History: angioplasty/stent, cholecystectomy, pacemaker/AICD - Social History Smoking Status: Never smoker Smokeless Tobacco Status: No Alcohol use: none Drug use: none - Family History Mother Living Status: Hx Family Cardiac Disorders: Yes (CONGESTIVE HEART FAILURE.) Father Living Status: Hx Family Cardiac Disorders: Yes (heart problem) Internal Medicine - H&P: Meds Allopurinol [Zyloprim 100 MG] 100 mg PO DAILY 12/26/16 [History] Carvedilol [Coreg] 6.25 mg PO BIDWM 12/26/16 [History] CloNIDine Patch [Catapres-Tts] 0.1 mg TD QWEEK 12/26/16 [History] Cyanocobalamin (Vitamin B-12) [Vitamin B12] 1,000 mcg PO DAILY 12/26/16 [History ] Docusate Sodium [Stool Softener] 250 mg PO DAILY 12/26/16 [History] Ferrous Sulfate [Iron] 325 mg PO BID 12/26/16 [History] Furosemide [Lasix] 20 mg PO DAILY 12/26/16 [History] Gabapentin [Neurontin] 100 mg PO TID 12/26/16 [History] Nitroglycerin [Nitrostat] 0.4 mg SL Q5M PRN 12/26/16 [History] Omeprazole [PriLOSEC] 20 mg PO BID 12/26/16 [History] Polyethylene Glycol 3350 [MiraLAX Powder Bulk 17.9 Oz] 17 gm PO DAILY 12/26/16 [ History] Potassium Chloride [Klor-Con 10] 10 meq PO DAILY 12/26/16 [History] Ropinirole HCl [Requip] 0.5 mg PO TID 12/26/16 [History] amLODIPine [Norvasc] 5 mg PO BID 12/26/16 [History] Clopidogrel [Plavix] 75 mg PO DAILY 02/06/17 [History] Fluticasone Propionate Nasal [Flonase] 100 mcg NS DAILY PRN 02/06/17 [History] Ropinirole HCl [Requip] 4 mg PO HS 02/06/17 [History] HYDROcodone/Acet 10/325 mg [[place] 10-325 mg] 1 tab PO Q6HR PRN #20 02/08/17 [Rx ] Valsartan [Diovan] 80 mg PO DAILY #0 02/08/17 [Rx] 3 Allergy/AdvReac Type Severity Reaction Status Date / Time Sulfa (Sulfonamide Allergy See Verified 12/26/16 10:46 Antibiotics) Comments All Systems PM: A 10-system review of systems was performed and is negative for pertinent findings except as documented above in the HPI. - Constitutional Vitals: Temp Pulse Resp BP Pulse Ox 98.1 F 60 14 102/45 96 03/11/17 03:39 03/11/17 03:39 03/11/17 03:39 03/11/17 03:39 03/11/17 03:39 General appearance: Present: A&O X 3, no acute distress, answers questions appropriately - Head Head exam: Present: atraumatic, normocephalic - Eye Eye exam: Present: PERRL, conjuntiva pink, sclera anicteric Pupils: Present: PERRL - Neck Neck exam general surgery: Present: supple, trachea midline. Absent: lymphadenopathy - Respiratory Respiratory exam: Present: CTAB. Absent: accessory muscle use, rales, rhonchi, wheezes - Cardiovascular Cardiovascular exam: Present: RRR, +S1, +S2. Absent: diastolic murmur, gallop, rubs, systolic murmur - GI/Abdominal GI/Abdominal exam: Present: normal bowel sounds, soft, no peritoneal signs. Absent: distended, tenderness - Extremities Exam Extremities exam: Present: pedal edema (Bilaterally), warm, radial pulses palpable and symmetrical. Absent: calf tenderness, cyanotic - Neurological Exam Neurological exam: Present: CN II-XII intact, oriented X3, no focal deficits. Absent: pronater drift, facial droop, speech deficit - Skin Skin exam: Present: dry, intact
[2017-03-11 05:13] LABS: Basophils % 0.4 %; Eosinophils # 0.3 K/mcL (0.0-0.6); Eosinophils % 5.6 %; Hematocrit 28.8 % (35.3-44.9); Lymphocytes % 19.1 %; Mean Corpuscular HGB Conc 31.3 g/dL (31.6-35.5); Mean Corpuscular Hemoglobin 30.9 pg (28.0-33.3); Mean Platelet Volume 10.4 fL (9.4-12.4); Monocytes # 0.3 K/mcL (0.0-1.3); Monocytes % 5.9 %; Neutrophils # 3.6 K/mcL (1.6-8.9); Platelet Count 244 K/mcL (140-400); Red Blood Count 2.91 M/mcL (3.82-4.97); Red Cell Distribution Width 15.9 % (11.5-14.5)
[2017-03-11 05:32] LABS: % Iron Saturation 18 % (15-50); Iron 40 mcg/dL (50-170); Transferrin 161 mg/dL (180-382)
[2017-03-11 05:45] LABS: BUN/Creatinine Ratio 13 (6-26); Blood Urea Nitrogen 12 mg/dL (7-20); Calcium 8.8 mg/dL (8.6-10.8); Carbon Dioxide 26 mEq/L (19-29); Chloride 104 mEq/L (98-109); Glucose 143 mg/dL (70-99); Magnesium 1.8 mg/dL (1.6-2.6); Osmolality,Calculated 290 (280-300); Potassium 3.6 mEq/L (3.5-4.5); Sodium 139 mEq/L (136-145); eGFR For African Americans > 60 (> 60); eGFR For Non-African Americans 56 (> 60)
[2017-03-11 05:54] LABS: Ferritin 154 ng/ml (5-204)
[2017-03-11 06:08] LABS: Folate 12.4 ng/mL (7.0-31.4)
[2017-03-11] MEDS: Pantoprazole 40 MG VIAL IVP SCH ×2 (06:37→16:26)
[2017-03-11] MEDS: rOPINIRole 0.25 MG TABLET PO SCH ×3 (08:37→20:50)
[2017-03-11] MEDS: Cyanocobalamin (B-12) 1,000 MCG TABLET PO SCH (08:38)
[2017-03-11] MEDS: amLODIPine 5 MG TABLET PO SCH ×2 (08:38→20:50)
[2017-03-11] MEDS: Valsartan 80 MG TABLET PO SCH (08:38)
[2017-03-11] MEDS: Gabapentin 100 MG CAPSULE PO SCH ×3 (08:38→20:50)
[2017-03-11] MEDS: rOPINIRole 1 MG TABLET PO SCH (20:50)
--- NOTE | 2017-03-11 23:54 | Internal Med Progress Note ---
Date of Encounter: 03/11/17 Time of Encounter: 14:45 - Assessment and plan (1) CHF exacerbation Current Visit: Yes Status: Acute Assessment and plan: Diuresis with 40 mg IV lasix BID, strict I/Os Qualifiers: Congestive heart failure type: unspecified congestive heart failure type Qualified Code(s): I50.9 - Heart failure, unspecified (2) GI bleed Current Visit: Yes Status: Acute Assessment and plan: NPO with PPI. Hold Plavix for now. Consult GI in AM. Qualifiers: GI bleed type/associated pathology: melena Qualified Code(s): K92.1 - Melena (3) CKD (chronic kidney disease) Current Visit: Yes Status: Chronic Qualifiers: Chronic kidney disease stage: stage 3 (moderate) Qualified Code(s): N18.3 - Chronic kidney disease, stage 3 (moderate) - Subjective Interval history: patient doing well after arriving on floors. Breathing is stable. Has not had any coffee ground emesis since arrival. VS remain stable. - Constitutional Vitals: Temp Pulse Resp BP Pulse Ox 99.0 F 60 14 119/69 95 03/11/17 23:06 03/11/17 23:06 03/11/17 23:06 03/11/17 23:06 03/11/17 23:06 General appearance: Present: A&O X 3, no acute distress, answers questions appropriately - Respiratory Respiratory exam: Present: CTAB, rales. Absent: accessory muscle use, rhonchi, wheezes - Cardiovascular Cardiovascular exam: Present: RRR - Extremities Exam Extremities exam: Present: pedal edema Internal Medicine: Result - Labs CBC & Chem 7: 03/11/17 04:39 03/11/17 04:39 Labs: Short CBC 03/11/17 Range/Units 04:39 WBC 5.4 (4.3-11.1) K/mcL Hgb 9.0 L (11.5-15.4) g/dL Hct 28.8 L (35.3-44.9) % Plt Count 244 (140-400) K/mcL Neutrophils # 3.6 (1.6-8.9) K/mcL BMP 03/11/17 04:39 Sodium 139 Potassium 3.6 Chloride 104 Carbon Dioxide 26 BUN 12 Creatinine 0.95 Glucose 143 H Calcium 8.8 Consult Discharge Plan - Plan Referrals: NONE,PCP [Primary Care Provider] -
[2017-03-12 04:37] LABS: Basophils % 0.4 %; Eosinophils # 0.3 K/mcL (0.0-0.6); Eosinophils % 6.7 %; Hematocrit 32.2 % (35.3-44.9); Hemoglobin 9.9 g/dL (11.5-15.4); Immature Granulocytes % 3.3 % (0-4); Lymphocytes # 1.2 K/mcL (0.6-4.6); Lymphocytes % 24.9 %; Mean Corpuscular HGB Conc 30.7 g/dL (31.6-35.5); Mean Corpuscular Hemoglobin 30.1 pg (28.0-33.3); Mean Corpuscular Volume 97.9 fL (83.0-100.0); Mean Platelet Volume 10.5 fL (9.4-12.4); Monocytes # 0.3 K/mcL (0.0-1.3); Monocytes % 7.4 %; Neutrophils # 2.6 K/mcL (1.6-8.9); Platelet Count 258 K/mcL (140-400); Red Blood Count 3.29 M/mcL (3.82-4.97); Segmented Neutrophils % 57.3 %
[2017-03-12 04:48] LABS: BUN/Creatinine Ratio 10 (6-26); Blood Urea Nitrogen 10 mg/dL (7-20); Carbon Dioxide 28 mEq/L (19-29); Chloride 102 mEq/L (98-109); Glucose 118 mg/dL (70-99); Osmolality,Calculated 290 (280-300); Potassium 3.7 mEq/L (3.5-4.5); Sodium 140 mEq/L (136-145); eGFR For African Americans > 60 (> 60); eGFR For Non-African Americans 54 (> 60)
[2017-03-12] MEDS: Pantoprazole 40 MG VIAL IVP SCH ×2 (05:14→17:56)
[2017-03-12] MEDS: *HR* HYDROcodone/Acet 10/325 mg TABLET PO PRN ×2 (05:48→22:11)
[2017-03-12] MEDS: Valsartan 80 MG TABLET PO SCH (08:24)
[2017-03-12] MEDS: amLODIPine 5 MG TABLET PO SCH ×2 (08:24→19:49)
[2017-03-12] MEDS: rOPINIRole 0.25 MG TABLET PO SCH ×3 (08:32→19:48)
[2017-03-12] MEDS: Gabapentin 100 MG CAPSULE PO SCH ×3 (08:32→19:49)
[2017-03-12] MEDS: Cyanocobalamin (B-12) 1,000 MCG TABLET PO SCH (08:32)
--- NOTE | 2017-03-12 10:41 | Internal Med Progress Note ---
Date of Encounter: 03/12/17 Time of Encounter: 09:15 - Assessment and plan (1) GI bleed Current Visit: Yes Status: Acute Assessment and plan: NPO with PPI. Hold Plavix for now. GI on board, appreciate their recommendations. Patient with history of coffee-ground emesis. Her anemia is new since last month but is stable. Patient stating she had just taken pain medicine just prior to my examination of her. Her pain was controlled. She is tender to the epigastric area. Of note, patient stating she would refuse a colonoscopy as she states that she wants to get an EGD and then discharged today. She is anxious to go home. Instructed on importance of receiving an EGD prior to disposition. Hemoccult positive. Shortness of breath has improved. Lower extremity edema has resolved. Awaiting GI recommendations. Of note, patient stating she also had a 10 pound weight loss. She states that she was admitted to inpatient rehabilitation at [facility] for 3 weeks and just got out last week. Qualifiers: GI bleed type/associated pathology: melena Qualified Code(s): K92.1 - Melena (2) Epigastric abdominal pain Current Visit: No Status: Acute (3) GERD (gastroesophageal reflux disease) Current Visit: No Status: Chronic Assessment and plan: On omeprazole 20 mg twice a day at home. Continue Protonix while admitted. GI on board. Qualifiers: Esophagitis presence: esophagitis presence not specified Qualified Code(s) : K21.9 - Gastro-esophageal reflux disease without esophagitis (4) CHF exacerbation Current Visit: Yes Status: Resolved Assessment and plan: Patient appears to have been successfully diuresed. No lower extremity edema. She denies shortness of breath above her norm. Renal functioning has remained stable. Echocardiogram revealing preserved ejection fraction of 55% with indeterminate diastolic function, moderate to severe biatrial enlargement, mild to moderate MR, mild to moderate TR, severe pulmonary hypertension. Acute on chronic diastolic heart failure. Continue strict I's and O's. Echo with Saline Contrast Date of Study: 03/11/2017 Impressions: LVEF 55%. Normal LV chamber size, wall thickness and function. Atypical septal motion consistent with paced rhythm. Indeterminate diastolic function. Normal right ventricular structure and function. Moderate to severe biatrial enlargement. No evidence of PFO with agitated saline contrast. Mild-moderate mitral regurgitation. Mild-moderate tricuspid regurgitation. Severe pulmonary hypertension. Estimated RVSP is 57 mmHg. A device lead was visualized in the right atrium and right ventricle. Qualifiers: Congestive heart failure type: unspecified congestive heart failure type Qualified Code(s): I50.9 - Heart failure, unspecified (5) CAD (coronary artery disease) Current Visit: No Status: Chronic Assessment and plan: Patient denies chest pain or shortness of breath. Qualifiers: Coronary Disease-Associated Artery/Lesion type: [place] artery [place] vs. transplanted heart: [place] heart Associated angina: angina presence unspecified Qualified Code(s): I25.10 - Atherosclerotic heart disease of [place] coronary artery without angina pectoris (6) Chronic indwelling [place] catheter Current Visit: No Status: Chronic Assessment and plan: We will check a urinalysis. (7) CKD (chronic kidney disease) Current Visit: Yes Status: Chronic Assessment and plan: Consistent with her baseline, creatinine normal since admission. Qualifiers: Chronic kidney disease stage: stage 3 (moderate) Qualified Code(s): N18.3 - Chronic kidney disease, stage 3 (moderate) (8) Anemia Current Visit: Yes Status: Chronic Assessment and plan: New since last month. She has remained hemodynamically stable. Stool guaiac positive. History of coffee-ground emesis. Nothing by mouth, GI on board, likely EGD today if possible. - Subjective Interval history: Patient seen and examined. On examination, patient sitting upright in bed watching television. Patient stating she feels weak but states her pain is controlled. Patient denies shortness of breath above her normal while at rest but states if she were to get up and move around, that she would be short of breath again. - Constitutional Vitals: Temp Pulse Resp BP Pulse Ox 97.8 F 63 16 100/65 96 03/12/17 07:06 03/12/17 07:06 03/12/17 07:06 03/12/17 07:06 03/12/17 08:25 General appearance: Present: A&O X 3, pleasant, no acute distress, answers questions appropriately - Head Head exam: Present: atraumatic, normocephalic - Eye Eye exam: Present: PERRL, conjuntiva pink, sclera anicteric Pupils: Present: PERRL - Neck Neck exam general surgery: Present: supple, trachea midline. Absent: lymphadenopathy - Respiratory Respiratory exam: Present: CTAB. Absent: accessory muscle use, rales, respiratory distress, rhonchi, wheezes - Cardiovascular Cardiovascular exam: Present: RRR, +S1, +S2. Absent: diastolic murmur, gallop, rubs, systolic murmur - GI/Abdominal GI/Abdominal exam: Present: distended, normal bowel sounds, soft, tenderness ( Epigastric), no peritoneal signs - Extremities Exam Extremities exam: Present: warm, radial pulses palpable and symmetrical. Absent : calf tenderness, cyanotic, pedal edema - Neurological Exam Neurological exam: Present: alert, CN II-XII intact, oriented X3, no focal deficits, strengths equal and symetr throughout. Absent: pronater drift, facial droop, speech deficit - Skin Skin exam: Present: dry, intact, pallor, warm Internal Medicine: Result - Labs CBC & Chem 7: 03/12/17 03:28 03/12/17 03:28 Labs: Short CBC 03/12/17 Range/Units 03:28 WBC 4.6 (4.3-11.1) K/mcL Hgb 9.9 L (11.5-15.4) g/dL Hct 32.2 L (35.3-44.9) % Plt Count 258 (140-400) K/mcL Neutrophils # 2.6 (1.6-8.9) K/mcL BMP 03/12/17 03:28 Sodium 140 Potassium 3.7 Chloride 102 Carbon Dioxide 28 BUN 10 Creatinine 0.98 Glucose 118 H Calcium 9.0 Consult Discharge Plan - Plan Referrals: NONE,PCP [Primary Care Provider] -
--- NOTE | 2017-03-12 12:30 | Gastroenterology Consult Note ---
<Renzo Schmidt Jacklyn - Last Filed: 03/12/17 12:27> Date of Encounter: 03/12/17 Time of Encounter: 10:20 - Assessment and plan (1) GI bleed Status: Acute Assessment and plan: Patient with coffee-ground emesis and a fecal occult blood test positive at [facility]. Plan for EGD today to r/o esophagitis, gastritis, duodenitis, PUD, MW tear, or AVM. Keep pt NPO. Qualifiers: GI bleed type/associated pathology: melena Qualified Code(s): K92.1 - Melena (2) Epigastric abdominal pain Status: Acute Assessment and plan: Continue PPI and we plan for EGD today. (3) GERD (gastroesophageal reflux disease) Status: Chronic Assessment and plan: Continue PPI and plan for EGD today. Qualifiers: Esophagitis presence: esophagitis presence not specified Qualified Code(s) : K21.9 - Gastro-esophageal reflux disease without esophagitis (4) Anemia Status: Chronic Assessment and plan: Hgb 12.6 on 02/06/2017, on admission Hgb 9, and this AM Hgb 9.9. Patient is agreeable for EGD today but states she will not agree to a colonoscopy. Qualifiers: Anemia type: unspecified type Qualified Code(s): D64.9 - Anemia, unspecified - Time Spent With Patient Total time spent is greater than 50% in coordination of care (as documented) at patient's floor/unit and/or counseling patient: GI History of Present Illness - Data of Consult Patient: new to practice Consult date: 03/12/17 Requesting Physician: Jane Mahajan - Consult Narrative Reason for consult: anemia History of present illness: Ms. Russell is a 86 year old female with PMHx of arthritis, CHF, GERD, hyperlipidemia, HTN, NV, and TIA who presented from [facility] for shortness of breath for 2 days. She has noticed increased feet swelling over the past 2-3 months, and has been having mild non-productive cough. Her shortness of breath has been worsening over the 2 days prior to admission. She reports coffee- ground emesis, and guaiac test positive at [facility]. Hgb 12.6 on 02/06/2017, on admission Hgb 9, and this AM Hgb 9.9. Procedures: Per patient report: Colonoscopy 3-4 years ago at [facility], "polyps removed". NSAIDs: None Anticoagulation: Plavix Past Med Surg Social Fam HX - Past Medical History Medical history: arthritis, CHF, GERD, hyperlipidemia, hypertension, myocardial infarction, renal disease, TIA Psychiatric history: no psych history - Past Surgical History Surgical History: angioplasty/stent, cholecystectomy, pacemaker/AICD - Social History Smoking Status: Never smoker Smokeless Tobacco Status: No Alcohol use: none Drug use: none - Family History Mother Living Status: Hx Family Cardiac Disorders: Yes (CONGESTIVE HEART FAILURE.) Father Living Status: Hx Family Cardiac Disorders: Yes (heart problem) - Gastrointestinal Gastrointestinal: Present: as per HPI - Constitutional Constitutional: as per HPI - EENT Eyes: as per HPI Ears: Present: as per HPI Nose, mouth and throat: Present: as per HPI - Cardiovascular Cardiovascular ROS: Present: as per HPI - Respiratory Respiratory IM: Present: as per HPI - Genitourinary Genitourinary: Absent: change in color, Urinary frequency - Neurological ROS Neurological GI: Present: as per HPI - Hematologic/Lymphatic Hematologic/Lymphatic pediatric: Present: as per HPI - Musculoskeletal Musculoskeletal ROS GI: Present: as per HPI - Integumentary Integumentary GI: Present: as per HPI - Psychiatric ROS Psychiatric GI: Present: as per HPI - Endocrine Endocrine IM: Present: as per HPI - Constitutional Vitals: Temp Pulse Resp BP Pulse Ox 98.1 F 62 16 131/73 97 03/12/17 11:12 03/12/17 11:12 03/12/17 11:12 03/12/17 11:12 03/12/17 11:12 General appearance: Present: cooperative, A&O X 3, no acute distress, answers questions appropriately - Head Head exam: Present: atraumatic, normocephalic - Eye Eye exam: Present: normal appearance, sclera anicteric - ENT ENT exam: Present: mucous membranes dry - Neck Neck exam general surgery: Present: normal inspection, trachea midline - Respiratory Respiratory exam: Present: decreased breath sounds, CTAB. Absent: rales, rhonchi - Cardiovascular Cardiovascular exam: Present: RRR, +S1, +S2 - GI/Abdominal GI/Abdominal exam: Present: soft, tenderness (Epigastric), no peritoneal signs. Absent: distended, firm, guarding - Rectal Rectal exam: Present: deferred - Extremities Exam Extremities exam: Present: warm - Neurological Exam Neurological exam: Present: no focal deficits - Psychiatric Psychiatric exam: Present: normal affect, normal mood - Skin Skin exam: Present: dry, intact, normal color, warm Results - Labs CBC & Chem 7: 03/12/17 03:28 03/12/17 03:28 Labs: Last Result Calcium 9.0 mg/dL (8.6-10.8) 03/12/17 03:28 Iron 40 mcg/dL (50-170) L 03/11/17 04:39 % Saturation 18 % (15-50) 03/11/17 04:39 Transferrin 161 mg/dL (180-382) L 03/11/17 04:39 Ferritin 154 ng/ml (5-204) 03/11/17 04:39 Vitamin B12 1536 pg/mL (213-816) H 03/11/17 04:39 Folate 12.4 ng/mL (7.0-31.4) 03/11/17 04:39 Entire Visit Hgb 9.9 g/dL (11.5-15.4) L 03/12/17 03:28 Hct 32.2 % (35.3-44.9) L 03/12/17 03:28 Ferritin 154 ng/ml (5-204) 03/11/17 04:39 Folate 12.4 ng/mL (7.0-31.4) 03/11/17 04:39 Consult Discharge Plan - Plan Instructions: Sucralfate (By mouth), Fluconazole (By mouth), Heart Failure (DC) Additional Instructions: Follow-up with primary care provider within one to 2 weeks, follow-up with GI as soon as possible Referrals: [facility] [Provider Group] Gloria Tillman MD [Partnered Physician] - 03/25/17 1:00 pm Prescriptions: Fluconazole [Diflucan] 400 mg PO DAILY #56 tab Sucralfate [Carafate] 1 gm PO 5144,6210 #60 tablet <Mauricio Mancilla - Last Filed: 03/14/17 16:48> Date of Encounter: 03/12/17 Time of Encounter: 12:00 - Time Spent With Patient Total time spent is greater than 50% in coordination of care (as documented) at patient's floor/unit and/or counseling patient: GI History of Present Illness - Data of Consult Requesting Physician: Jane Mahajan - Consult Narrative History of present illness: Ms. Russell is a 86 year old female - Constitutional Vitals: Temp Pulse Resp BP Pulse Ox 97.6 F 61 16 99/63 94 03/13/17 07:00 03/13/17 07:00 03/13/17 07:00 03/13/17 07:00 03/13/17 07:47 Results - Labs CBC & Chem 7: 03/13/17 04:58 03/13/17 04:58 Labs: Last Result Calcium 9.0 mg/dL (8.6-10.8) 03/13/17 04:58 Iron 40 mcg/dL (50-170) L 03/11/17 04:39 % Saturation 18 % (15-50) 03/11/17 04:39 Transferrin 161 mg/dL (180-382) L 03/11/17 04:39 Ferritin 154 ng/ml (5-204) 03/11/17 04:39 Vitamin B12 1536 pg/mL (213-816) H 03/11/17 04:39 Folate 12.4 ng/mL (7.0-31.4) 03/11/17 04:39 Entire Visit Hgb 10.8 g/dL (11.5-15.4) L 03/13/17 04:58 Hct 33.6 % (35.3-44.9) L 03/13/17 04:58 Ferritin 154 ng/ml (5-204) 03/11/17 04:39 Folate 12.4 ng/mL (7.0-31.4) 03/11/17 04:39 - Attending Attestation I have personally interviewed and examined Ms. Russell. Plan EGD today
--- NOTE | 2017-03-12 13:39 | Anesthesia Evaluation PreOp ---
Date of Encounter: 03/12/17 Time of Encounter: 13:36 - Past History Planned Operation: EGD Cardiac History: [place], CHF (maintained on Lasix), HTN (maitnained on Coreg, Clonidine, Lasix Norvasc, Valsartan), Hyperlipidemia, Cardiac Stent, Pacemaker/ ICD, Other (ECHO 03/11/2017 - Atypical Sepatl Motion c/w paced rhythm, LVEF = 55% . MIld-moderate MR&TR. NO SWMA) PRESTIDIGITATOR History: TIA Other Medical History: Renal (stage 3 CKD), GERD ( Maintained on Prilosec. Hx of GIB) Anesthesia History: Past Anesthesia (Angioplasty/Stent, Fouzia, Pacer/AICD) Alcohol Use: none Drug use: none Medications and Allergies Allopurinol [Zyloprim 100 MG] 100 mg PO DAILY 12/26/16 [History] Carvedilol [Coreg] 6.25 mg PO BIDWM 12/26/16 [History] CloNIDine Patch [Catapres-Tts] 0.1 mg TD QWEEK 12/26/16 [History] Cyanocobalamin (Vitamin B-12) [Vitamin B12] 1,000 mcg PO DAILY 12/26/16 [History ] Docusate Sodium [Stool Softener] 250 mg PO DAILY 12/26/16 [History] Ferrous Sulfate [Iron] 325 mg PO BID 12/26/16 [History] Furosemide [Lasix] 20 mg PO DAILY 12/26/16 [History] Gabapentin [Neurontin] 100 mg PO TID 12/26/16 [History] Nitroglycerin [Nitrostat] 0.4 mg SL Q5M PRN 12/26/16 [History] Omeprazole [PriLOSEC] 20 mg PO BID 12/26/16 [History] Polyethylene Glycol 3350 [MiraLAX Powder Bulk 17.9 Oz] 17 gm PO DAILY 12/26/16 [ History] Potassium Chloride [Klor-Con 10] 10 meq PO DAILY 12/26/16 [History] Ropinirole HCl [Requip] 0.5 mg PO TID 12/26/16 [History] amLODIPine [Norvasc] 5 mg PO BID 12/26/16 [History] Clopidogrel [Plavix] 75 mg PO DAILY 02/06/17 [History] Fluticasone Propionate Nasal [Flonase] 100 mcg NS DAILY PRN 02/06/17 [History] Ropinirole HCl [Requip] 4 mg PO HS 02/06/17 [History] HYDROcodone/Acet 10/325 mg [[place] 10-325 mg] 1 tab PO Q6HR PRN #20 02/08/17 [Rx ] Valsartan [Diovan] 80 mg PO DAILY #0 02/08/17 [Rx] 3 Allergy/AdvReac Type Severity Reaction Status Date / Time Sulfa (Sulfonamide Allergy See Verified 12/26/16 10:46 Antibiotics) Comments - Meds/Allergy Pre-op Review Medications Reviewed: Yes Allergies Reviewed: Yes Beta Blockers on Current Med List: No Anesthesia Results - Labs 03/12/17 03:28 03/12/17 03:28 Laboratory Results Anesthesia Exam Intake & Output 03/09/17 03/10/17 03/11/17 03/12/17 23:59 23:59 23:59 23:59 Intake Total 120 / 120 Output Total 1175 / 1175 3525 / 3525 Balance -1175 / -1175 -3405 / -3405 Weight 65.816 kg 66.814 kg 65.5 kg Height: 5'4" Weight: 144# BMI = 25 NPO (# of Hours): MNoc - HEENT Pupil (Motor): Pupils equal, EOMI Mallampati: II Teeth: Normal Oral Opening: Greater than 3 - PRESTIDIGITATOR LOC: Oriented PRESTIDIGITATOR Motor: Normal RUE, Normal LUE, Normal RLE, Normal LLE, Normal Face PRESTIDIGITATOR Sensory: Normal: RUE, LUE, RLE, LLE, Face - Cardiac Rhythm: Regular Murmur: None - Pulmonary Breath Sounds: bilateral Clear Respiratory Effort: Symmetrical Anesthesia Assess/Plan ASA Score: 3 (CKD, CHF, HTN, Chol, CAD, GIB) Modified [place] Scale for Level of Consciousness: Cooperative, oriented, and tranquil Anesthetic Plan: MAC Autologous Blood: Yes Monitoring Plan: Standard Monitors Recovery Plan: PACU Anes Supervising Prov Stmt: Pt seen/evaluated, R&B Discussed, questions answered and consent obtained. Jourdan Hudson MD
[2017-03-12] MEDS ORDERED: Simethicone 40 MG/0.6 ML MLS IR ONE (14:07)
[2017-03-12] MEDS ORDERED: Tetracaine/Benzocaine/Butamben 200MG/SPRAY (100SPY/BOT) MM ONE (14:07)
[2017-03-12] MEDS: rOPINIRole 1 MG TABLET PO SCH (19:48)
[2017-03-12] MEDS: Fluconazole 400 MG/200 ML 400 MG/200 ML BAG IVPB SCH ×2 (19:49→22:12)
[2017-03-13 00:06] LABS: Bilirubin,Urine Small (Negative); Blood,Urine Negative (Negative); Clarity,Urine Cloudy (Clear); Color,Urine Dark Yellow (Yellow); Glucose,Urine (UA) Normal (Normal); Ketones,Urine Negative (Negative); Leukocyte Esterase,Urine Small (Negative); Nitrite,Urine Negative (Negative); PH,Urine 5.5 pH Units (5.0-8.0); Protein,Urine 30 mg/dL (Neg-Trace); Specific Gravity,Urine 1.024 (1.010-1.025); Urobilinogen,Urine Normal (Normal)
[2017-03-13 00:11] LABS: Hyaline Casts,Urine None Seen per lpf (None-Few); Squamous Epithelial Cell,Urine Many per lpf (None-Few)
[2017-03-13 00:36] LABS: Calcium Oxalate Crystals,Urine Present; RBC,Urine 0-3 per hpf (0-3)
[2017-03-13 00:37] LABS: Bacteria,Urine Few per hpf (None-Few)
[2017-03-13 05:28] LABS: Basophils % 0.7 %; Eosinophils # 0.3 K/mcL (0.0-0.6); Eosinophils % 6.1 %; Hematocrit 33.6 % (35.3-44.9); Hemoglobin 10.8 g/dL (11.5-15.4); Immature Granulocytes % 1.7 % (0-4); Lymphocytes # 1.1 K/mcL (0.6-4.6); Lymphocytes % 24.6 %; Mean Corpuscular HGB Conc 32.1 g/dL (31.6-35.5); Mean Corpuscular Hemoglobin 31.6 pg (28.0-33.3); Mean Corpuscular Volume 98.2 fL (83.0-100.0); Mean Platelet Volume 10.3 fL (9.4-12.4); Monocytes # 0.4 K/mcL (0.0-1.3); Monocytes % 8.1 %; Neutrophils # 2.7 K/mcL (1.6-8.9); Platelet Count 274 K/mcL (140-400); Red Blood Count 3.42 M/mcL (3.82-4.97); Red Cell Distribution Width 16.5 % (11.5-14.5); Segmented Neutrophils % 58.8 %
[2017-03-13] MEDS: Pantoprazole 40 MG VIAL IVP SCH (05:41)
[2017-03-13 05:48] LABS: BUN/Creatinine Ratio 11 (6-26); Blood Urea Nitrogen 10 mg/dL (7-20); Carbon Dioxide 25 mEq/L (19-29); Chloride 104 mEq/L (98-109); Glucose 109 mg/dL (70-99); Osmolality,Calculated 282 (280-300); Potassium 3.8 mEq/L (3.5-4.5); Sodium 136 mEq/L (136-145); eGFR For African Americans > 60 (> 60); eGFR For Non-African Americans 59 (> 60)
[2017-03-13] MEDS: *HR* HYDROcodone/Acet 10/325 mg TABLET PO PRN (06:45)
[2017-03-13 07:03] VITALS: BP 99/63
[2017-03-13] MEDS ORDERED: Fluconazole 100 MG TABLET PO SCH (09:00)
--- NOTE | 2017-03-13 10:42 | Discharge Summary ---
Date of Encounter: 03/13/17 Time of Encounter: 10:00 - Discharge Diagnosis (1) GI bleed Priority: Primary Status: Resolved Comments: EGD without source of bleeding. Remained hemodynamically stable and had a normal, nonbloody BM on the night prior to discharge. Followup outpatient. Patient refused a colonoscopy while admitted. Qualifiers: GI bleed type/associated pathology: melena Qualified Code(s): K92.1 - Melena (2) Candidiasis of esophagus Priority: Primary Status: Acute Comments: had thrush last week; will treat with diflucan x2 weeks and have her followup outpatient (3) Gastroparesis Priority: Primary Status: Suspected Comments: suspected on EGD. Will have her followup outpatient with GI (4) Gastritis Priority: Primary Status: Acute Comments: will initiate carafate and have her followup outpatient. (5) Epigastric abdominal pain Priority: Primary Status: Resolved Comments: Patient denied pain on day of discharge and was able to tolerate a regular diet. (6) GERD (gastroesophageal reflux disease) Priority: Secondary Status: Chronic (7) CHF exacerbation Priority: Primary Status: Resolved Comments: Patient appears to have been successfully diuresed. No lower extremity edema. She denied shortness of breath above her norm while admitted. Renal functioning has remained stable. Echocardiogram revealing preserved ejection fraction of 55% with indeterminate diastolic function, moderate to severe biatrial enlargement, mild to moderate MR, mild to moderate TR, severe pulmonary hypertension. Acute on chronic diastolic heart failure. Followup outpatient Qualifiers: Congestive heart failure type: unspecified congestive heart failure type Qualified Code(s): I50.9 - Heart failure, unspecified (8) CAD (coronary artery disease) Priority: Secondary Status: Chronic Comments: patient denied chest pain or shortness of breath while admitted Qualifiers: Coronary Disease-Associated Artery/Lesion type: [place] artery [place] vs. transplanted heart: [place] heart Associated angina: angina presence unspecified Qualified Code(s): I25.10 - Atherosclerotic heart disease of [place] coronary artery without angina pectoris (9) Chronic indwelling [place] catheter Priority: Secondary Status: Resolved Comments: patient stating she only had the [place] since Saturday. Removed prior to discharge with successful voiding trial. Abnormal urinalysis noted. Suspect contamination. Patient denies dysuria. We will call her tomorrow if urine culture is abnormal (10) CKD (chronic kidney disease) Priority: Secondary Status: Chronic Comments: Remained stable throughout this admission. Creatinine remained normal Qualifiers: Chronic kidney disease stage: stage 3 (moderate) Qualified Code(s): N18.3 - Chronic kidney disease, stage 3 (moderate) (11) Anemia Priority: Secondary Status: Chronic Comments: New since last month. She has remained hemodynamically stable while admitted. Stool guaiac positive. History of coffee-ground emesis. EGD without obvious source of bleeding. She had a normal bowel movement just prior to discharge that was nonbloody. Patient refused colonoscopy while admitted. Folic levels normal, B12 levels high, iron level is mildly low, recommend dietary changes and supplementation at the discretion of her primary care provider. Follow-up outpatient. - Discharge Medications Prescriptions: Fluconazole [Diflucan] 400 mg PO DAILY #56 tab Sucralfate [Carafate] 1 gm PO 0730,1630 #60 tablet Home Medications: Allopurinol [Zyloprim 100 MG] 100 mg PO DAILY 12/26/16 [History] Carvedilol [Coreg] 6.25 mg PO BIDWM 12/26/16 [History] CloNIDine Patch [Catapres-Tts] 0.1 mg TD QWEEK 12/26/16 [History] Cyanocobalamin (Vitamin B-12) [Vitamin B12] 1,000 mcg PO DAILY 12/26/16 [History ] Docusate Sodium [Stool Softener] 250 mg PO DAILY 12/26/16 [History] Ferrous Sulfate [Iron] 325 mg PO BID 12/26/16 [History] Furosemide [Lasix] 20 mg PO DAILY 12/26/16 [History] Gabapentin [Neurontin] 100 mg PO TID 12/26/16 [History] Nitroglycerin [Nitrostat] 0.4 mg SL Q5M PRN 12/26/16 [History] Omeprazole [PriLOSEC] 20 mg PO BID 12/26/16 [History] Polyethylene Glycol 3350 [MiraLAX Powder Bulk 17.9 Oz] 17 gm PO DAILY 12/26/16 [ History] Potassium Chloride [Klor-Con 10] 10 meq PO DAILY 12/26/16 [History] Ropinirole HCl [Requip] 0.5 mg PO TID 12/26/16 [History] amLODIPine [Norvasc] 5 mg PO BID 12/26/16 [History] Clopidogrel [Plavix] 75 mg PO DAILY 02/06/17 [History] Fluticasone Propionate Nasal [Flonase] 100 mcg NS DAILY PRN 02/06/17 [History] Ropinirole HCl [Requip] 4 mg PO HS 02/06/17 [History] HYDROcodone/Acet 10/325 mg [[place] 10-325 mg] 1 tab PO Q6HR PRN #20 02/08/17 [Rx ] Valsartan [Diovan] 80 mg PO DAILY #0 02/08/17 [Rx] Fluconazole [Diflucan] 400 mg PO DAILY #56 tab 03/13/17 [Rx] Sucralfate [Carafate] 1 gm PO 0730,1630 #60 tablet 03/13/17 [Rx] Allergies/Adverse Reactions: 3 Allergy/AdvReac Type Severity Reaction Status Date / Time Sulfa (Sulfonamide Allergy See Verified 12/26/16 10:46 Antibiotics) Comments Procedures/tests Complete & Pending: Procedures Performed prior 72 hours Category Date Time Status EV echocardiogram Routine Y 03/11/17 00:54 Completed Date of admission: 03/11/17 09:20 Primary care physician: PCP NONE Consults: 03/11/17 01:34 Consult to Gastroenterology [CONS] Routine Consulting Provider: [facility] Reason for Consult: Anemia, guiaic positive Call Completed: No 03/12/17 16:40 Consult to Screw Cutter [CONS] Routine Reason for SW Consult: Continue passport services Discharging clinician: Jane Carranza Anticipated date of discharge: 03/13/17 - Patient Status Disposition: Home Health Service Condition: Good Functional capacity at discharge: independent ambulation Overall status at discharge: patient is back to baseline - Discharge Instructions Follow Up With: Gloria Tillman MD [Partnered Physician] - 03/25/17 1:00 pm [facility] [Provider Group] Additional Instructions: Follow-up with primary care provider within one to 2 weeks, follow-up with GI as soon as possible - Diet and Activity Activity: increase activity as tolerated Diet: low fat, low cholesterol, low salt diet Hospital course: Ms. Russell is a 86 year old female with past medical history of CHF, GERD, hyperlipidemia, hypertension, chronic kidney disease stage III, TIA, CAD status post stent, cholecystectomy, pacemaker. Patient presented to the emergency department chief complaint of shortness of breath 2 days prior to presentation. She was transferred from [facility]. Patient stating she also noticed increased swelling in her feet for the past 2-3 months prior to presentation. She also endorsed a mild, nonproductive cough. Patient stating she had felt shortness of breath on the 2 days prior to presentation that had progressively worsened. Patient also reported vomiting with coffee-ground emesis. An [place] emergency department, BMP was elevated in her stool guaiac was positive. Patient was transferred and admitted to the hospitalist service for further evaluation and treatment of CHF exacerbation and a GI bleed. Patient remained hemodynamically stable and did not need transfusions during this admission. GI was brought on board who proceeded with an EGD that found diffuse gastritis, likely esophageal candidiasis, moderately severe gastroparesis. No signs of active bleeding were noted on the scope. Recommendation was to proceed with a colonoscopy but the patient refused. Her diet was slowly advanced and she was able to tolerate a regular diet without abdominal pain during this admission. She also had an normal, nonbloody bowel movement just prior to discharge. She remained hemodynamically stable. Regarding her indwelling [place] catheter, this was just placed on the Saturday prior to presentation despite reports that she had this in place for quite some time. This was removed prior to discharge and she had a successful voiding trial. She did have a mildly abnormal urinalysis likely consistent with contamination. She will be called tomorrow if she needs antibiotics though suspicion is low. She was started on Diflucan and Carafate and was instructed to follow-up closely outpatient with primary care provider as well as with GI. Regarding her CHF exacerbation, she was successfully diuresed. Her shortness of breath with exertion and her lower extremity edema had resolved. She was on room air while admitted. She had an echocardiogram that revealed a preserved ejection fraction of 55% with indeterminate diastolic function, moderate to severe biatrial enlargement, mild to moderate MR, mild to moderate TR, severe pulmonary hypertension. She was euvolemic on examination on day of discharge and denied chest pain or shortness of breath. She recently was admitted to a shelter for inpatient rehabilitation and had gotten back home last week. She already has home health services set up. She was discharged home in stable condition with close outpatient follow-up recommended. Echo with Saline Contrast Date of Study: 03/11/2017 Impressions: LVEF 55%. Normal LV chamber size, wall thickness and function. Atypical septal motion consistent with paced rhythm. Indeterminate diastolic function. Normal right ventricular structure and function. Moderate to severe biatrial enlargement. No evidence of PFO with agitated saline contrast. Mild-moderate mitral regurgitation. Mild-moderate tricuspid regurgitation. Severe pulmonary hypertension. Estimated RVSP is 57 mmHg. A device lead was visualized in the right atrium and right ventricle. EGD 03/12/17 impression: Sick white exudate in the middle and lower third of esophagus questionable candidiasis check brushings. Diffuse gastritis. Gastroparesis moderately severe. Antral edema. Normal duodenum. No biopsies: Patient on Plavix. Blood in stool. Anemia-multifactorial. Patient refused to have colonoscopy. No specimens collected. - Time Spent with Patient Total time spent providing and/or coordinating discharge services: - Constitutional Vitals: Temp Pulse Resp BP Pulse Ox 97.6 F 61 16 99/63 94 03/13/17 07:00 03/13/17 07:00 03/13/17 07:00 03/13/17 07:00 03/13/17 07:47 General appearance: Present: A&O X 3, pleasant, no acute distress, answers questions appropriately - Head Head exam: Present: atraumatic, normocephalic - Eye Eye exam: Present: PERRL, conjuntiva pink, sclera anicteric Pupils: Present: PERRL - Neck Neck exam general surgery: Present: supple, trachea midline. Absent: lymphadenopathy - Respiratory Respiratory exam: Present: CTAB. Absent: accessory muscle use, rales, respiratory distress, rhonchi, wheezes - Cardiovascular Cardiovascular exam: Present: RRR, +S1, +S2. Absent: diastolic murmur, gallop, rubs, systolic murmur - GI/Abdominal GI/Abdominal exam: Present: normal bowel sounds, soft, no peritoneal signs. Absent: distended, tenderness - Extremities Exam Extremities exam: Present: warm, radial pulses palpable and symmetrical. Absent : calf tenderness, cyanotic, pedal edema - Neurological Exam Neurological exam: Present: alert, CN II-XII intact, normal gait, oriented X3, no focal deficits, strengths equal and symetr throughout. Absent: pronater drift, facial droop, speech deficit - Skin Skin exam: Present: dry, intact, normal color, warm
--- NOTE | 2017-03-13 11:15 | Physician Discharge Referral ---
Home Health/Hosp Referral Info Transfer to: Home Health Attending Provider: Mercedes Carranza CNP Provider in Charge Post Discharge: PCP - Diagnosis (1) GI bleed Priority: Primary Status: Resolved (2) Candidiasis of esophagus Priority: Primary Status: Acute (3) Gastroparesis Priority: Primary Status: Suspected (4) Gastritis Priority: Primary Status: Acute (5) Epigastric abdominal pain Priority: Primary Status: Resolved (6) GERD (gastroesophageal reflux disease) Priority: Secondary Status: Chronic (7) CHF exacerbation Priority: Primary Status: Resolved (8) CAD (coronary artery disease) Priority: Secondary Status: Chronic (9) Chronic indwelling Tariq catheter Priority: Primary Status: Resolved (10) CKD (chronic kidney disease) Priority: Secondary Status: Chronic (11) Anemia Priority: Secondary Status: Chronic - Respiratory Orders Smoking Cessation: Smoking cessation has been advised. For more information, call the [place] Tobacco Quit Line at 0-092-AOFR-NOW. - Diet/Nutrition Diet/Nutrition Orders: No Added Salt (NOELLE) - Activity Activity Orders: Up ad luanne, Ambulate (per PT) - Services Needed Following services are medically necessary services: Nursing, Home Health Aide, Physical Therapy, Occupational Therapy - Transfer Medications Prescriptions: Fluconazole [Diflucan] 400 mg PO DAILY #56 tab Sucralfate [Carafate] 1 gm PO 0730,1630 #60 tablet Home Medications: Allopurinol [Zyloprim 100 MG] 100 mg PO DAILY 12/26/16 [History] Carvedilol [Coreg] 6.25 mg PO BIDWM 12/26/16 [History] CloNIDine Patch [Catapres-Tts] 0.1 mg TD QWEEK 12/26/16 [History] Cyanocobalamin (Vitamin B-12) [Vitamin B12] 1,000 mcg PO DAILY 12/26/16 [History ] Docusate Sodium [Stool Softener] 250 mg PO DAILY 12/26/16 [History] Ferrous Sulfate [Iron] 325 mg PO BID 12/26/16 [History] Furosemide [Lasix] 20 mg PO DAILY 12/26/16 [History] Gabapentin [Neurontin] 100 mg PO TID 12/26/16 [History] Nitroglycerin [Nitrostat] 0.4 mg SL Q5M PRN 12/26/16 [History] Omeprazole [PriLOSEC] 20 mg PO BID 12/26/16 [History] Polyethylene Glycol 3350 [MiraLAX Powder Bulk 17.9 Oz] 17 gm PO DAILY 12/26/16 [ History] Potassium Chloride [Klor-Con 10] 10 meq PO DAILY 12/26/16 [History] Ropinirole HCl [Requip] 0.5 mg PO TID 12/26/16 [History] amLODIPine [Norvasc] 5 mg PO BID 12/26/16 [History] Clopidogrel [Plavix] 75 mg PO DAILY 02/06/17 [History] Fluticasone Propionate Nasal [Flonase] 100 mcg NS DAILY PRN 02/06/17 [History] Ropinirole HCl [Requip] 4 mg PO HS 02/06/17 [History] HYDROcodone/Acet 10/325 mg [[place] 10-325 mg] 1 tab PO Q6HR PRN #20 02/08/17 [Rx ] Valsartan [Diovan] 80 mg PO DAILY #0 02/08/17 [Rx] Fluconazole [Diflucan] 400 mg PO DAILY #56 tab 03/13/17 [Rx] Sucralfate [Carafate] 1 gm PO 0730,1630 #60 tablet 03/13/17 [Rx] Allergies/Adverse Reactions: 3 Allergy/AdvReac Type Severity Reaction Status Date / Time Sulfa (Sulfonamide Allergy See Verified 12/26/16 10:46 Antibiotics) Comments Certification: Further, I certify that my clinical findings support that this patient is homebound (i.e. absences from home require considerable and taxing effort and are for medical reasons or anabaptism services or infrequently or short duration when for other reasons) because: Homebound Reason: Leaving home requires considerable and taxing effort due to condition Attestation: My signature below is to certify that this patient is under my care and that I, or nurse practitioner, or a physician's operations and intelligence assistant working with me, has a face-to -face encounter with this patient.
[2017-03-13] MEDS ORDERED: Lidocaine -MPF 2% 5 ML VIAL INFILT ONE (11:25)
[2017-03-13] MEDS ORDERED: *HR* Etomidate 20 MG/10 ML AMPUL IVP ONE (11:25)
[2017-03-13] MEDS ORDERED: *HR* Propofol 200 MG/20 ML VIAL IVP ONE (11:25)
== END 2017-03-13 11:26 | disposition home health service (06) | DRG 377 ==
LOC: 3BNU → SUATTDRO 03-11 09:20
PROVIDERS: ADMIT Nurse Practitioner Family; ATTEND Nurse Practitioner Family